=== PATIENT | female | born 1950 | race Caucasian/White ===

== ENCOUNTER 2018-06-06 08:44 | Day surgery (SDC) | payer MEDICARE, OTHER, SELFPAY ==
[2018-06-06] VITALS (13 sets, daily range): BP systolic 97–141; BP diastolic 58–85; PULSE 59–73; RESP 14–18; TEMP 35.7–36.8; O2SAT 88–99; BMI 25.7
--- NOTE | 2018-06-06 | PATH.2_ITS ---
[facility] Accession Number: [id number] . 01 Material submitted: . UTERUS, BILATERAL FALLOPIAN TUBES AND OVARIES . 02 Diagnosis: Uterus, Bilateral Fallopian Tubes and Ovaries, Hysterectomy, Bilateral Salpingo-oophorectomy: 1. Atrophic endometrium. 2. Endosalpingiosis. 3. Uterus, bilateral fallopian tubes, bilateral ovaries and cervix with no evidence of neoplasia. MRV/06/08/2018 . 02 Electronically signed: . Lakshmi Muse MD, Pathologist NPI- [id number] . 01 Gross description: . Received in formalin, labeled uterus, bilateral tubes / ovaries, is a uterus (84 grams, 3.7 cm AP, 7.8 cm SI, 4.1 cm ML) with attached ovaries (right-2.2 x 1.3 x 0.7 cm; left-2.3 x 0.8 x 0.7 cm) and fimbriated fallopian tubes (right: length-5.3 cm, diameter-0.6 cm; left: length-5.5 cm, diameter-0.6 cm). The cervix (2.5 cm AP, 3.0 cm ML) has a vaginal cuff (up to 1.2 cm in depth), transverse os, and patent endocervical canal. The endometrium (average thickness-0.1 cm) is suero-pink smooth and flat. The myometrium (thickness-1.8 cm) is suero with a lacy and focally whorled appearance. The serosa is quigley-suero smooth and shiny. The ovaries have suero-yellow dull flat serosa and suero-yellow parenchyma with corpus albicans identified. The fallopian tubes have suero-purple smooth and shiny serosa and suero unremarkable lumens. Section code: (A1-A2) anterior cervix, bisected and submitted SI; (A3-A4) posterior cervix, bisected and submitted SI; (A5-A6) anterior endomyometrium; (A7-A8) posterior endomyometrium; (A9) right ovary, inside technical sales representative serial sections; (A10) left ovary, inside technical sales representative serial sections; (A11) right fallopian tube, inside technical sales representative serial sections; (A12) right fimbria, bivalved, entirely submitted; (A13) left fallopian tube, inside technical sales representative serial sections; (A14) left fimbria, bivalved, entirely submitted. ([id number]) /[facility] . 02 Pathologist provided ICD-10: N81.4 . 02 CPT . 115518 Performed at: 01 [facility] [address] [id number] MD Armen Perez MD Phone: [phone] Performed at: [facility] [address] [place], [place] [id number] MD Lakshmi Muse MD Phone: [phone]
[2018-06-06] MEDS: LACTATED RINGERS 1,000 ML 42 ML IV ×2 (09:27→12:22)
--- NOTE | 2018-06-06 09:34 | PM.PREOP ---
Pre-operative Note Interval Note History & Physical reviewed/Exam performed by Physician: Yes Changes to H&P: No
[2018-06-06] MEDS: CEFAZOLIN 2 GM/100 ML FROZ.PIGGY IV (10:20)
--- NOTE | 2018-06-06 11:06 | SUR.OPER ---
Lithotomy on padded OR bed. [place] Pad Positioner under torso. Head on pillow, arms padded and tucked at sides. Legs secured in padded yellow fins stirrups.
[2018-06-06] MEDS: BUPIVACAINE 0.5% W/ EPI (PF) VIAL 30 ML INJ (11:25)
[2018-06-06] MEDS: ACETAMINOPHEN IV 1,000 MG/100 ML VIAL 400 MG IV (11:48)
--- NOTE | 2018-06-06 11:50 | SUR.PREOP ---
per dr. fernandez blood glucose not needed
[2018-06-06] MEDS: OXYCODONE/ACETAMINOPHEN 5/325 TABLET 1 TAB PO (13:31)
--- NOTE | 2018-06-06 15:00 | PC.NURSE ---
POST OP ARRIVAL - awake, has been jeffrey sips in pacu, denies nausea, bt hypo, no flatus yet, abd soft, mildly distended, 2x2 w/telfa over cdi, scott pad w/sm qty old serosang, nichols with clear yellow urine, per pacu emptied 400ml prior to tsf, states pain 3 on scale 0/10 and was given oxycodone in pacu, scd placed, oriented to room, bp 129/58, p60, ra 97%, call light available, given water for dry mouth.
[2018-06-06] MEDS: OXYCODONE/ACETAMINOPHEN 5/325 TABLET 2 TAB PO ×2 (17:42→21:48)
[2018-06-06] MEDS: KETOROLAC 30 MG/ML VIAL IV ×2 (17:43→23:59)
[2018-06-06] MEDS: LACTATED RINGERS 1,000 ML 100 ML IV (17:43)
[2018-06-06] MEDS: DOCUSATE 250 MG CAPSULE PO (21:47)
[2018-06-06] MEDS: ROSUVASTATIN 10 MG TABLET 5 MG PO (21:47)
--- NOTE | 2018-06-06 22:14 | PC.NURSE ---
Evening notes: Juliana resting comfortably tonight, reports lower abd/pelvic pain 4/10, reports good pain relief from Percocet & Toradol. Able to transfer to sit in chair for brief time, then back to bed. Hellen-pad with small spot of old sero-sang drainage, pad changed. Packing in place per Dr Lee, she ordered nichols to be DC'd at 0600 saying she would be here at 7 to pull packing. Nichols emptied at 1900 with 1800 ml clear dilute output. Drinking plenty of fluids, denies any nausea & tolerated regular meal tonight. Reports recent problems with constipation, accepted DOS tonight, requested to wait until next pain med due to take MOM as she is afraid it may work too fast. Her VS are stable & she remains Ox3, using call button appropriately.
[2018-06-07 00:04] VITALS: BP 116/64; PULSE 79; RESP 18; TEMP 36.8; O2SAT 94
--- NOTE | 2018-06-07 02:16 | PC.NURSE ---
Checked pt. to medicate her for pain, but she's sleeping. 06-20 RN. reported to JAIME nichols in AM & leave the vaginal packing in & Dr. Lee will take it out. Will cont. POC & monitor.
[2018-06-07] MEDS: OXYCODONE/ACETAMINOPHEN 5/325 TABLET 2 TAB PO ×2 (02:50→13:43)
[2018-06-07] MEDS: MAGNESIUM HYDROXIDE 30 ML UDC PO (02:50)
[2018-06-07] MEDS: LACTATED RINGERS 1,000 ML 100 ML IV (02:51)
[2018-06-07 04:30] VITALS: BP 108/58; PULSE 74; RESP 18; TEMP 36.9; O2SAT 95
[2018-06-07] MEDS: LEVOTHYROXINE 125 MCG TABLET PO (05:59)
[2018-06-07] MEDS: KETOROLAC 30 MG/ML VIAL IV ×2 (05:59→12:29)
--- NOTE | 2018-06-07 06:29 | PC.NURSE ---
0605 Ramirez was DC'd, leave packing place. Tolerated procedure well & catheter intact, noted very small amount of sero-sang. drainage in the scott-pad. Scott-pad only changed once this morning. Lap sites drsg. intact & noted drainage in the umbilical dressing. Will cont. POC & monitor.
[2018-06-07 07:29] LABS: Add Manual Diff / Slide Review NO; Basophils Absolute Auto 0 /uL (0-100); Basophils Percent Auto 0.1 % (0-2); Eosinophils Absolute Auto 0 /uL (0-450); Eosinophils Percent Auto 0.1 % (2-4); Hematocrit 34.1 % (36-46); Hemoglobin 11.6 g/dL (12.0-16.0); Lymphocytes Absolute Auto 1100 /uL (1100-4500); Lymphocytes Percent Auto 11.4 % (25-40); Mean Corpuscular HGB Conc 33.9 % (30-36); Mean Corpuscular Hemoglobin 31.8 PG (26-34); Monocytes Absolute Auto 800 /uL (0-900); Monocytes Percent Auto 8.4 % (3-14); Neutrophils Absolute Auto 8000 /uL (1500-7000); Platelet Count 238 X10^3/uL (150-400); Red Blood Cell Count 3.63 X10^6/uL (4.0-5.2); Red Cell Distribution Width 12.6 % (11.6-14.8)
[2018-06-07 07:40] VITALS: BP 109/64; PULSE 65; RESP 18; TEMP 36.3; O2SAT 95
--- NOTE | 2018-06-07 07:49 | PC.NURSE ---
Addendum entered by Karolyn Soto R.N. 06/07/18 13:54: PAIN - discomfort when mobilizing lower abd area, given scheduled toradol earlier, continued with discomfort and given percocet 5/325mg x1 tab with snack. Original Note: Addendum entered by Karolyn Soto R.N. 06/07/18 12:53: - 1200 pt voided 300ml, primary care pediatrician performed pvr at 260ml, req that pt try to void again and after her lunch finished, into br w/addl 400ml void, info provided to Laura Lee's nurse. Original Note: Addendum entered by Karolyn Soto R.N. 06/07/18 10:37: - pt voided an addl 150ml, when rechecked via pvr with bladder scan the highest volume with it centered shows 115ml, spoke to Laura at 's office and will not do an in/out at this time. Original Note: Addendum entered by Karolyn Soto R.N. 06/07/18 10:07: - pt voided 100ml this am, checked w/bladder scan, indicated 450ml retained, notified and new instructions to have pt try again and if she does not void and addl 300ml, do in/out catheter. Original Note: Addendum entered by Karolyn Soto R.N. 06/07/18 09:15: GI - after breakfast, experienced onset nausea, no emesis, given 4mg iv zofran. Original Note: AM NOTE - pt is alert, resting comfortably in bed, states abd discomfort 2 on scale 0/[address]Garde clau in this am and vag packing was removed, has peripad and mesh underwear, per , pt needs bladder scan approx [id number] this am and ivf are to be saline locked now, pt has fluids at bedside, scd on, abd mildly distended, soft, umbilicus 2x2 w/old serosang, x2 sites cdi, ra 95%, denies nausea, no flatus yet. Discussed voiding patterns, hat in BR, mobilization this am.
[2018-06-07] MEDS: DOCUSATE 250 MG CAPSULE PO (08:35)
[2018-06-07] MEDS: ONDANSETRON 4 MG/2 ML INJ IV (09:15)
--- NOTE | 2018-06-07 10:24 | CM.DANOTE ---
DCP: Case received, EMR reviewed and met with patient. Introduced self and role. DCP template completed with information currently available. Patient is a 67 year old female who admitted yesterday morning to the care of the hospitalist team. PCP: Dr. Dupont. Surgeon: Dr. Lee. Payer: confirmed: Medicare/[employer]. Patient came to hospital for surgical procedure. She had Lap, tubligation, uterus removal, as well as Cystoceal. Met briefly with patient, who was sitting up in her chair, and her spouse, Fernando, was in room. Pleasant, has support from spouse when she goes home, with no concerns. Patient is hopeful that she will be going home today. Lives in [place] with spouse. P: DCP to continue to follow. May be able to go home today if stable enough. Suellen Leon RN/[employer] Furnace Loader
[2018-06-07 11:30] VITALS: BP 122/70; PULSE 59; RESP 18; TEMP 36.7; O2SAT 98
--- NOTE | 2018-06-07 16:01 | PC.NURSE ---
DC note: All DC instructions & paperwork reviewed with patient & her spouse. Last doses of medications written on paperwork, new med rx for Percocet & card with follow up appt given to patient. Pt reports urinating with no difficulty, aware to get up every 2-3 hours & attempt to void & call Dr if she has any difficulty. Pt dressed herself. IV to left hand removed, pressure drsg applied. Pt ambulating in room, able to transfer into a wheelchair, taken down to ER by BILLING ADMINISTRATOR where driven away by spouse in private car.
--- NOTE | 2018-06-07 20:15 | PM.GYNOP.1 ---
Operative Date/Time/Diagnoses Date of procedure: 06/06/18 Time of procedure: 12:30 Pre-op diagnosis: Uterine prolapse Cystocele Rectocele Post-op diagnosis: same Procedure: Procedures Operation Date: 06/06/18 10:00 Actual Procedures Side Surgeon p Laparoscopic Assisted Vag Hysterectomy w/Bilat S&O Rashmi Lee MD s Colporrhaphy Anterior/Posterior Colporrhaphy Rashmi Lee MD Indications: Symptomatic uterine prolapse, cystocele, and rectocele Surgeon: Rashmi Lee Clinical Statistics Manager: Roel Elizondo Anesthesia Type: General Operative Notes Findings: Third-degree uterine prolapse Third-degree cystocele Third-degree rectocele Normal tubes and ovaries Closure Type: primary Specimen(s): left tube & ovary, right tube & ovary and uterus Applied: catheter Estimated blood loss (mL): 100 Blood products transfused: none Procedure in detail: The patient was taken to the operating room where she was placed in the dorsal supine position. After adequate general endotracheal anesthesia was achieved, she was placed in the dorsal lithotomy position, and prepped and draped in the usual sterile fashion. A time-out was performed. A bivalve speculum was placed into the vagina, and a single-tooth tenaculum was placed on the anterior lip of the cervix. The cervical os was sequentially dilated until the ZUMI uterine manipulator could pass easily into the endometrial cavity. The single-tooth tenaculum was removed from the anterior lip of the cervix, and the bivalve speculum was removed from the vagina. Attention was then turned to the abdomen where 6 mL of half percent Marcaine with epinephrine were injected in the umbilical fold. A 5 mm incision was made. The Verhees needle was placed into the peritoneal cavity, and its placement confirmed by aspiration and drop test. The abdominal cavity was insufflated with 3.8 L of CO2. The Verhees needle was removed, and a 5 mm trocar was placed without difficulty. Initial inspection of the pelvis revealed the findings noted above. 2 other incisions were made midway between the pubic symphysis and umbilicus 4 cm lateral to the midline. These were 5 mm incisions. Two 5 mm trochars were placed under direct visualization. The right tube and ovary were grasped with an atraumatic grasper. The infundibulopelvic ligament on the right side was cauterized and cut with plasma kinetic. The round ligament and broad ligament were cauterized and cut. This was continued to the level of the uterine arteries. This was repeated on the patient's left side. The instruments were removed from the abdomen. Attention was then turned to the vagina where the ZUMI uterine manipulator was removed from the uterus. The cervix was grasped with a 4 tooth tenaculum. 10 mL of quarter percent Marcaine with epinephrine were injected circumferentially around the cervix. The cervix was circumscribed. The bladder and rectum were dissected off the lower uterine segment and cervix with an open moistened Ray-Oscar. The peritoneum was entered sharply with the Metzenbaum scissors anteriorly and a [place] placed. The peritoneum was entered posteriorly with the Metzenbaum scissors and the long weighted speculum was placed into the posterior cul-de-sac. The uterosacral cardinal ligament complexes were clamped, transected, and suture ligated with 0 Vicryl. These were attached to hemostats. The uterine arteries were clamped, transected, and suture ligated with 0 Vicryl. The uterus was handed off for specimen with the tubes and ovaries. The peritoneum was closed with a pursestring suture with 2-0 Vicryl. The vaginal cuff was closed with 0 Vicryl with a series of simple interrupted sutures. The tagged sutures were cut. 2 Allis clamps were placed at the apex of the cystocele. 6 mL of half percent Marcaine with epinephrine were injected and an incision was made with a #10 blade between the 2 Allis clamps. Wide Allis clamps were placed on the midline of the cystocele approximately 5. The mucosa was undermined using the Metzenbaum scissors and the mucosa incised in the midline moving the wide Allis clamps to the edges of the mucosa. The mucosa was dissected off the underlying fascia using an open moistened Ray-Oscar and a #10 blade. The fascia was reapproximated with 0 Vicryl with a series of horizontal mattress sutures. The excess vaginal mucosa was excised. The mucosa was closed using simple interrupted sutures with 2-0 Vicryl including the underlying fascia to close the space. The weighted speculum was removed from the vagina. Allis clamps were placed at the mucocutaneous junction at the introitus. 6 mL of half percent Marcaine with epinephrine were injected. An incision was made with a #10 blade between the 2 Allis clamps, and a triangular piece of skin and underlying subcutaneous tissue was removed. Allis clamps were placed in the midline of the rectocele. 10 mL of half percent Marcaine with epinephrine were injected submucosally. The mucosa was undermined using the Metzenbaum scissors and the mucosa incised in the midline, moving the wide Allis clamps to the mucosal edges. The underlying fascia was dissected off of th mucosa using an open moistened Ray-Oscar and a #10 blade. The fascia was reapproximated using 0 Vicryl with a series of horizontal mattress sutures. The excess vaginal mucosa was excised. The mucosa was closed using a series of simple interrupted sutures with 2-0 Vicryl including the underlying fascia to close the space. On the perineum 0 Vicryl was used to reapproximate the levator muscle. The subcutaneous layer was closed with 2-0 Vicryl. The skin was closed with 3-0 chromic in a subcuticular fashion. Hemostasis was achieved. A Betadine moistened vaginal pack was placed into the vagina. A rectal exam was done and there were no sutures palpable in the rectum. Attention was turned back to the abdomen after gloves were changed. The abdominal cavity was insufflated with 3.2 L of CO2. The vaginal cuff and pedicles were examined and were found to be hemostatic. Pelvis was copiously irrigated with warm normal saline. No bleeding was noted. The urine was clear. The instruments were removed from the abdomen. The trocars were removed from the abdomen. The incisions were closed with 4 0 undyed Vicryl in a subcuticular fashion. Steri-Strips, 2 x 2, and op site were placed. Sponge, lap, and instrument counts were correct x-2. The patient tolerated the procedure well, was taken to PACU in stable condition. Complications: none Post-operative Condition: stable Disposition: PACU Plan for aftercare: To acute care after recovery
--- NOTE | 2018-06-07 20:23 | PM.DS.1 ---
History of Present Illness Date Patient Seen: 06/07/18 Time Patient Seen: 13:50 Chief complaint: *OPB* [id number] Narrative: Patient is a 67-year-old postop day # 1 status post LAVH/BSO/anterior and posterior repair. Ramirez catheter was removed this morning at 6:00 a.m.. The patient has been able to void with decreasing postvoid residuals. Her pain is well controlled with oral medications. She has ambulated and tolerated a diet. She has no nausea or vomiting. Discharge Providers Date of admission: 06/06/2018 Discharge provider: Rashmi Lee MD Discharge Date: 06/07/18 Summary Discharge Diagnosis: Uterine prolapse Cystocele Rectocele Status post LAVH/BSO/anterior and posterior repair Hospital Course: The patient presented on 06/06/2018 for a scheduled LAVH/BSO/anterior and posterior repair. She underwent these procedures without complication. On postop day # 1 her Ramirze catheter was removed. She was able to void with decreasing postvoid residuals throughout the day. She was discharged home in the afternoon of postop day # 1. She was tolerating a diet. She was ambulating. No nausea or vomiting. Pain was managed with oral medications. Status at Discharge Functional status at discharge: independent ambulation Overall status at discharge: patient is progressing back to baseline Time Spent with Patient Less than 30 minutes Exam Vital Signs (past 8 hours): Oxygen Delivery Method Room Air Oxygen Flow Rate 0 Narrative Exam Narrative: Generally: Patient is sitting up in bed, no acute distress Lungs: Clear to auscultation bilaterally Cardiovascular: Regular rate and rhythm Abdomen: Soft and flat. Incisions: Clean dry and intact with op sites Perineum: Dry Extremities: Negative Homans, no edema Objective Labs Result Diagrams: 06/07/18 06:45 Labs: Laboratory Results - last 24 hr 06/07/18 06:45 WBC 10.0 RBC 3.63 L Hgb 11.6 L Hct 34.1 L MCV 94.0 MCH 31.8 MCHC 33.9 RDW 12.6 Plt Count 238 Neut % (Auto) 80.0 H Lymph % (Auto) 11.4 L [place] % (Auto) 8.4 Eos % (Auto) 0.1 L Baso % (Auto) 0.1 Neut # (Auto) 8000 H Lymph # (Auto) 1100 [place] # (Auto) 800 Eos # (Auto) 0 Baso # (Auto) 0 Discharge Plan Discharge Plan Patient Disposition: Home Discharge comment: Call with fever, chills, redness or drainage around incisions or bleeding vaginally more than spotty to light Ibuprofen 600-800mg every 6 hours No heavy lifting No lunging or squatting Discharge Med Rec/Prescriptions Prescriptions: New oxycodone-acetaminophen [Percocet] 5-325 mg tablet 1 tab PO Q4-6H PRN (Reason: pain) Qty: 30 RF: 0 Continued rosuvastatin [Crestor] 5 mg tablet 5 mg PO BEDTIME RF: 0 levothyroxine 125 mcg capsule 125 mcg PO DAILY RF: 0 estradiol 0.75 mg PO BEDTIME RF: 0 Follow up/Referrals: Rashmi Lee MD [Physician] - 2 Weeks Discharge Orders: Discharge (Order); Ordered 06/07/18 Ordered By: Rashmi Lee Provider Discharge Instructions Diet: Diet as Tolerated Activity: No intercourse No lunging or squatting Skin/Wound/Dressing Care Report to your healthcare provider any signs of infection, such as:: chills, fever, increased pain, unusual drainage and unusual redness Dressing: Remove outer plastic dressings and guaze after first shower Visit Report/Discharge Packet Instructions: DI for Cystocele and Rectocele Repair, Hysterectomy -- Laparoscopic Surgery, DI for Vaginal Hysterectomy, Oxycodone/Acetaminophen (By mouth) Stand Alone Forms: Surgery Discharge Discharge Data Attending Provider: Rashmi Lee Discharges patient from system. Discharge Date/Time: 06/07/18 15:50 Quality VTE Deep Vein Thrombosis/Pulmonary Embolism Present on Admission: No
--- NOTE | 2018-06-07 20:27 | P.DS_ITS ---
History of Present Illness Date Patient Seen: 06/07/18 Time Patient Seen: 13:50 Chief complaint: *OPB* [id number] Narrative: Patient is a 67-year-old postop day # 1 status post LAVH/BSO/anterior and posterior repair. Ramirez catheter was removed this morning at 6:00 a.m.. The patient has been able to void with decreasing postvoid residuals. Her pain is well controlled with oral medications. She has ambulated and tolerated a diet. She has no nausea or vomiting. Discharge Providers Date of admission: 06/06/2018 Discharge provider: Rashmi Lee MD Discharge Date: 06/07/18 Summary Discharge Diagnosis: Uterine prolapse Cystocele Rectocele Status post LAVH/BSO/anterior and posterior repair Hospital Course: The patient presented on 06/06/2018 for a scheduled LAVH/BSO/anterior and posterior repair. She underwent these procedures without complication. On postop day # 1 her Ramirez catheter was removed. She was able to void with decreasing postvoid residuals throughout the day. She was discharged home in the afternoon of postop day # 1. She was tolerating a diet. She was ambulating. No nausea or vomiting. Pain was managed with oral medications. Status at Discharge Functional status at discharge: independent ambulation Overall status at discharge: patient is progressing back to baseline Time Spent with Patient Less than 30 minutes Exam Vital Signs (past 8 hours): Oxygen Delivery Method Room Air Oxygen Flow Rate 0 Narrative Exam Narrative: Generally: Patient is sitting up in bed, no acute distress Lungs: Clear to auscultation bilaterally Cardiovascular: Regular rate and rhythm Abdomen: Soft and flat. Incisions: Clean dry and intact with op sites Perineum: Dry Extremities: Negative Homans, no edema Objective Labs Result Diagrams: 06/07/18 06:45 Labs: Laboratory Results - last 24 hr 06/07/18 06:45 WBC 10.0 RBC 3.63 L Hgb 11.6 L Hct 34.1 L MCV 94.0 MCH 31.8 MCHC 33.9 RDW 12.6 Plt Count 238 Neut % (Auto) 80.0 H Lymph % (Auto) 11.4 L [place] % (Auto) 8.4 Eos % (Auto) 0.1 L Baso % (Auto) 0.1 Neut # (Auto) 8000 H Lymph # (Auto) 1100 [place] # (Auto) 800 Eos # (Auto) 0 Baso # (Auto) 0 Discharge Plan Discharge Plan Patient Disposition: Home Discharge comment: Call with fever, chills, redness or drainage around incisions or bleeding vaginally more than spotty to light Ibuprofen 600-800mg every 6 hours No heavy lifting No lunging or squatting Discharge Med Rec/Prescriptions Prescriptions: New oxycodone-acetaminophen [Percocet] 5-325 mg tablet 1 tab PO Q4-6H PRN (Reason: pain) Qty: 30 RF: 0 Continued rosuvastatin [Crestor] 5 mg tablet 5 mg PO BEDTIME RF: 0 levothyroxine 125 mcg capsule 125 mcg PO DAILY RF: 0 estradiol 0.75 mg PO BEDTIME RF: 0 Follow up/Referrals: Rashmi Lee MD [Physician] - 2 Weeks Discharge Orders: Discharge (Order); Ordered 06/07/18 Ordered By: Rashmi Lee Provider Discharge Instructions Diet: Diet as Tolerated Activity: No intercourse No lunging or squatting Skin/Wound/Dressing Care Report to your healthcare provider any signs of infection, such as:: chills, f ever, increased pain, unusual drainage and unusual redness Dressing: Remove outer plastic dressings and guaze after first shower Visit Report/Discharge Packet Instructions: DI for Cystocele and Rectocele Repair, Hysterectomy -- Laparoscopic Surgery, DI for Vaginal Hysterectomy, Oxycodone/Acetaminophen (By mouth) Stand Alone Forms: Surgery Discharge Discharge Data Attending Provider: Rashmi Lee Discharges patient from system. Discharge Date/Time: 06/07/18 15:50 Quality VTE Deep Vein Thrombosis/Pulmonary Embolism Present on Admission: No
== END 2018-06-07 15:50 | disposition home or self-care (01) ==
LOC: OR 13:50 → AC 13:51
PROVIDERS: Visit Provider Obstetrics & Gynecology
PROC: 0UT9FZZ Resection of Uterus, Via Natural or Artificial Opening With Percutaneous Endoscopic Assistance (ICD-10-PCS; CPT 58552; principal; 2018-06-06 10:00)
PROC: (CPT 58552; 2018-06-06 10:00)
DX: N81.3 Complete uterovaginal prolapse (principal); N94.89 Other specified conditions associated with female genital organs and menstrual cycle
CPT/HCPCS: 58552; 57260; 36415; 85025; 88305; J0131; J0690; J1100; J1885; J2250; J2405; J2704; J3010

== ENCOUNTER → 2018-06-21 16:18 | Outpatient (CLI) | payer MEDICARE, OTHER, SELFPAY ==
[2018-06-06 14:30] VITALS: BMI 25.7
== END ==
PROVIDERS: Visit Provider Obstetrics & Gynecology
DX: R30.0 Dysuria (principal)
CPT/HCPCS: 87077; 87086; 87186

== ENCOUNTER → 2018-07-08 14:42 | Outpatient (CLI) | payer MEDICARE, OTHER, SELFPAY ==
[2018-06-06 14:30] VITALS: BMI 25.7
[2018-07-08 15:03] LABS: Bacteria Urine None Seen
[2018-07-08 15:34] LABS: Appearance Urine UA CLEAR; Bilirubin Urine UA NEGATIVE (NEGATIVE); Color Urine UA YELLOW; Glucose Urine UA NEGATIVE (Negative); Ketones Urine UA NEGATIVE (NEGATIVE); Leukocyte Esterase Urine UA NEGATIVE (NEGATIVE); Nitrite Urine UA NEGATIVE (Negative); Occult Blood Urine UA NEGATIVE (Negative); Protein Urine UA NEGATIVE (Negative); Specific Gravity Urine UA <=1.005 (1.000-1.035); Urobilinogen Urine UA 0.2 E.U./dL (0.2)
[2018-07-08 16:02] LABS: Culture Indicated Urine Cult Not Indicated; RBC Urine 1-5/HPF (0-5/HPF); WBC Urine 0-1/HPF (0-5/HPF)
== END ==
PROVIDERS: PCP Obstetrics & Gynecology; Visit Provider Obstetrics & Gynecology
DX: R30.0 Dysuria (principal)
CPT/HCPCS: 81001